=== PATIENT | male | born 1995 ===

== ENCOUNTER 2018-03-18 01:49 | Emergency (ER) | payer OTHER ==
[2018-03-18] MEDS ORDERED: Ondansetron ODT TAB* 4 MG PO ONE (02:21)
[2018-03-18] MEDS ORDERED: Ketorolac INJ* 60 MG/2 ML VIAL IM ONE (03:54)
[2018-03-18] MEDS ORDERED: Dexamethasone IV* 4 MG/ML 1 ML (4 MG) IM ONE (03:54)
[2018-03-18 04:11] VITALS: BP 129/76
--- NOTE | 2018-03-18 05:23 | ED ---
Russel Swain Rebecca, scribed for Augusto Blevins MD on 03/18/18 at 0351 . HPI Febrile Illness - HPI Summary HPI Summary: Pt is a 22 y/o M who presents to ED c/o febrile illness. Fever began 3 days ago on Wednesday night. Has been taking Tylenol to treat, avoiding Ibuprofen. Temperature was 102, then after his last dose of Tylenol wore off it was >104. Additionally c/o sore throat (6 days), N/V/D, rhinorrhea, myalgias, and hoarse voice. Diarrhea was present for about 12 hours 3 days ago, now resolved. Denies SOB, neck pain. [facility] where he had a negative rapid strep and received IV fluids due to dehydration. - History of Current Complaint Chief Complaint: EDFever Time Seen by Provider: 03/18/18 03:43 Hx Obtained From: Patient Onset/Duration: Started Days Ago - 3 days, Still Present Temperature: 104 F - [employer], per pt Current Severity: Mild Pain Intensity: 3 Pain Scale Used: 0-10 Numeric Alleviating Factors: OTC Medicine - Tylenol Associated Signs and Symptoms: Diarrhea, Myalgia, Nausea, Sore Throat, Vomiting - Allergy/Home Medications Allergies/Adverse Reactions: Allergies Allergy/AdvReac Type Severity Reaction Status Date / Time amoxicillin Allergy Hives Verified 03/18/18 02:00 PMH/Surg Hx/FS Hx/Imm Hx Previously Healthy: Yes Endocrine/Hematology History: Denies: Hx Diabetes Cardiovascular History: Denies: Hx Coronary Artery Disease, Hx Hypertension Infectious Disease History: No Infectious Disease History: Denies: Traveled Outside the [place] in Last 30 Days - Family History Known Family History: Positive: Hypertension - Social History Alcohol Use: Occasionally Substance Use Type: Reports: Marijuana Smoking Status (MU): Never Smoked Tobacco Review of Systems Positive: Fever Positive: Sore Throat, Nasal Discharge, Other - Hoarse voice Negative: Shortness Of Breath Positive: Vomiting, Diarrhea, Nausea Positive: Myalgia, Other - NEGATIVE: Neck pain All Other Systems Reviewed And Are Negative: Yes Physical Exam - Summary Physical Exam Summary: Appearance: Well appearing, no pain distress Skin: warm, dry, reflects adequate perfusion Head/face: normal Eyes: EOMI, CARLOS ENT: Exudates, mostly on the right tonsil and some mucous in the posterior pharynx, right tonsillar tenderness, no adenopathy Neck: supple, non-tender Respiratory: CTA, breath sounds present Cardiovascular: RRR, pulses symmetrical Musculoskeletal: normal, strength/ROM intact Neuro: normal, sensory motor intact, A&Ox3 Triage Information Reviewed: Yes Vital Signs On Initial Exam: Initial Vitals Temp Pulse Resp BP Pulse Ox 98.9 F 92 16 145/89 96 03/18/18 01:53 03/18/18 01:53 03/18/18 01:53 03/18/18 01:53 03/18/18 01:53 Vital Signs Reviewed: Yes Diagnostics - Vital Signs Vital Signs Temp Pulse Resp BP Pulse Ox 03/18/18 01:53 98.9 F 92 16 145/89 96 - Laboratory Lab Results: Lab Results 03/18/18 Range/Units 02:41 Influenza A (Rapid) Negative (Negative) Influenza B (Rapid) Negative (Negative) Lab Statement: Any lab studies that have been ordered have been reviewed, and results considered in the medical decision making process. Course/Dx - Course Assessment/Plan: Pt is a 22 y/o M who presents to ED c/o fever for 3 days for which he has been taking Tylenol. Temperature was 102, then after his last dose of Tylenol wore off it was >104. Additionally c/o sore throat (6 days), N/V/D, rhinorrhea, myalgias, and hoarse voice. Diarrhea was present for about 12 hours 3 days ago, now resolved. Denies SOB, neck pain. Pt was evaluated [facility] yesterday where he had a negative rapid strep and received IV fluids due to dehydration. In the ED course, pt had negative influenza A and B tests and received Decadron, Toradol, and Zofran. Pt will be D/C to home with Dx of tonsillitis and flu-like symptoms. Allergy noted. - Febrile Illness Differential Diagnoses: Fever of Unknown Origin, Meningitis, Pneumonia, Other: - URI, flu, mononucleosis, ear infection, sinus infection - Diagnoses Provider Diagnoses: Tonsillitis, Flu-like symptoms Discharge - Sign-Out/Discharge Documenting (check all that apply): Discharge/Admit/Transfer - Discharge - Discharge Plan Condition: Good Disposition: HOME Patient Education Materials: Tonsillitis (ED), Viral Syndrome (ED) Forms: *School Release Referrals: [facility] - Wai ROSALES [Primary Care Provider] - Additional Instructions: If you have symptoms greater than 5-7 days have the [facility] tested for mononucleosis. Drink plenty of fluids, Gatorade G2 may help. Return with difficulty breathing, neck stiffness, vomiting, worse or other concerns. - Billing Disposition and Condition Condition: STABLE Disposition: HOME The documentation as recorded by the Russel ramos Rebecca accurately reflects the service I personally performed and the decisions made by , Augusto Blevins MD.
== END 2018-03-18 04:06 | disposition home or self-care (01) ==
LOC: ED 01:49
DX: J03.90 Acute tonsillitis, unspecified (principal); J11.1 Influenza due to unidentified influenza virus with other respiratory manifestations
CPT/HCPCS: 87502; 96372; 99282; A9270-GY; J1100; J1885